=== PATIENT | female | born 1965 | race Caucasian/White ===

== ENCOUNTER 2017-12-09 13:53 | Emergency (ER) | payer BC, OTHER ==
[2017-12-09 14:16] VITALS: BMI 21.0
--- NOTE | 2017-12-09 14:29 | PDOC ---
History of Present Illness - General Chief Complaint: Nausea/Vomiting Stated Complaint: NAUSEA AND VOMITING Time Seen by Provider: 12/09/17 14:09 - History of Present Illness Initial Comments: 12/09/17 16:02 Chief complaint: Nausea and vomiting History of present illness: Patient complains of nausea and vomiting since this morning, multiple episodes of emesis consisting of bilious fluid. Intermittent crampy abdominal pain. No diarrhea. Last normal bowel movement was yesterday. Review of systems: No hematemesis, melena, or bloody stool. No fever/chills, URI symptoms, sore throat, cough, chest pain, shortness of breath, vaginal bleeding or discharge, dysuria or frequency. Urine does appear more concentrated and malodorous. Past medical history: Appendectomy, bowel resection for diverticulitis, section. Although the patient denies alcohol abuse, she has been treated in the emergency room in the past for alcohol-related illness. Social history: Denies alcohol drugs or tobacco. Denies disability Family history: Reviewed and noncontributory Physical exam: Alert and oriented well-developed well-nourished no acute distress cooperative Afebrile, vital signs normal Gen.: Patient has AOB but denies recent use of alcohol PERRLA, fundi benign, ENT clear Neck supple without bruit mass or nodes Chest clear CV regular without murmur rub or gallop Abdomen nondistended. Bowel sounds normal. Soft without mass tenderness organomegaly. No CVAT Skin clear, no rash, adequate turgor and wet mucous membranes Neurological C2 to 12 intact. Strength full and symmetric. No focal sensory or motor deficits. Gait stable and unimpaired. No asterixis or palmar erythema. Impression: In the absence of diarrhea, this appears to be alcoholic gastritis, or possibly pancreatitis Plan: CBC, chemistries, lipase, alcohol level, IV fluids, Zofran, Protonix, further evaluation and treatment based on results of laboratory studies and response to therapy. Past History - Past Medical History Allergies/Adverse Reactions: Allergies Allergy/AdvReac Type Severity Reaction Status Date / Time No Known Allergies Allergy Verified 12/09/17 14:01 Home Medications: Ambulatory Orders Alprazolam [Xanax] 1 mg PO DAILY 12/09/17 Cardiac Disorders: Yes (IL X 2,AORTIC RUPTURE,PE) COPD: No GI Disorders: Yes (ibs, INFECTED COLON) Psychiatric Problems: Yes (DEPRESSION) Seizures: Yes - Surgical History Appendectomy: Yes Cardiac Surgery: Yes (AORTIC REPAIR,DEL FILTER) GI Surgery: Yes (RESECTION) - Immunization History Immunization Up to Date: Yes - Suicide/Smoking/Psychosocial Hx Smoking Status: Yes Smoking History: Current every day smoker Have you smoked in the past 12 months: Yes Number of Cigarettes Smoked Daily: 3 Information on smoking cessation initiated: Yes 'Breaking Loose' booklet given: 07/18/13 Hx Alcohol Use: Yes (SOCIALLY) Drug/Substance Use Hx: No Substance Use Type: None *Physical Exam - Vital Signs Last Vital Signs Temp Pulse Resp BP Pulse Ox 98.3 F 94 H 20 143/100 100 12/09/17 13:55 12/09/17 13:55 12/09/17 13:55 12/09/17 13:55 12/09/17 13:55 ED Treatment Course - LABORATORY CBC & Chemistry Diagram: 12/09/17 14:47 12/09/17 15:00 Medical Decision Making - Medical Decision Making 12/09/17 16:08 Blood alcohol level is 90 to CBC and chemistries reveal a CO2 of 18, probably due to vomiting. Glucose is 73. Urinalysis had a few white cells but lots of epithelial cells and no nitrites or leukocyte esterase. 12/09/17 17:18 Patient is much improved. Nausea has resolved. No further vomiting. No abdominal pain. Taking by mouth fluids well. Follow-up with primary physician. Abstain from alcohol and tobacco as much as possible until fully recovered. *DC/Admit/Observation/Transfer Diagnosis at time of Disposition: Gastritis Qualifiers: Gastritis type: unspecified gastritis Chronicity: acute Gastritis bleeding: without bleeding Qualified Code(s): K29.00 - Acute gastritis without bleeding - Discharge Dispostion Disposition: HOME Condition at time of disposition: Improved Decision to Admit order: No - Referrals - Patient Instructions Printed Discharge Instructions: DI for Nausea -- Adult, DI for Vomiting -- Adult - Post Discharge Activity
[2017-12-09] MEDS ORDERED: ONDANSETRON 4 MG/2 ML VIAL IVPB ONE (14:30)
[2017-12-09] MEDS ORDERED: PANTOPRAZOLE SODIUM 40 MG in SODIUM CHLORIDE 100 ML IVPB ONE (14:30)
[2017-12-09] MEDS ORDERED: SODIUM CHLORIDE 1,000 ML IV STA ×2 (14:30→15:35)
[2017-12-09 14:31] LABS: URINE APPEARANCE Clear; URINE BILIRUBIN 1+ (NEGATIVE); URINE COLOR Amber; URINE GLUCOSE (UA) Negative (NEGATIVE); URINE KETONE 2+ (NEGATIVE); URINE LEUK ESTERASE Negative (NEGATIVE); URINE NITRITE Negative (NEGATIVE); URINE PROTEIN 1+ (NEGATIVE)
[2017-12-09 14:38] LABS: HCG,QUALITATIVE URINE Negative
[2017-12-09 14:50] LABS: EPI CELLS 4+ /HPF
[2017-12-09] MEDS ORDERED: PANTOPRAZOLE SODIUM 40 MG VIAL ONE (14:50)
[2017-12-09] MEDS ORDERED: ONDANSETRON 4 MG/2 ML VIAL ONE (14:50)
[2017-12-09 14:51] LABS: URINE BACTERIA 4+ /hpf (NEGATIVE)
[2017-12-09 15:28] LABS: BASO % 0.7 % (0-2.0); EOS % 0.7 % (0-4.5); HEMATOCRIT 42.7 % (32.4-45.2); HEMOGLOBIN 14.1 GM/dl (10.7-15.3); MCH 31.1 pg (25.7-33.7); MCHC 33.1 g/dl (32.0-36.0); MEAN CELL VOLUME 93.9 fl (80-96); MEAN PLT VOLUME 7.4 fl (7.5-11.1); NEUT % 79.6 % (42.8-82.8); PLATELET COUNT 224 K/MM3 (134-434); RBC 4.55 M/mm3 (3.60-5.2); WHITE BLOOD COUNT 6.9 K/mm3 (4.0-10.8)
[2017-12-09 15:29] LABS: ALBUMIN 3.9 g/dl (3.5-5.0); ALK PHOS 86 U/L (32-92); ANION GAP 8 MMOL/L (8-16); BILIRUBIN,TOTAL 0.8 mg/dl (0.2-1.0); BLOOD UREA NITROGEN 12 mg/dl (7-18); CALCIUM 8.5 mg/dl (8.4-10.2); CHLORIDE 106 mmol/L (98-107); CO2 18 mmol/L (22-28); CREATININE 0.7 mg/dl (0.6-1.3); GLUCOSE,RANDOM 73 mg/dl (74-106); POTASSIUM 3.5 mmol/L (3.5-5.1); SGOT/AST 43 U/L (10-42); SGPT/ALT 27 U/L (10-40); SODIUM 132 mmol/L (136-145); TOT PROT 6.4 g/dl (6.4-8.3)
[2017-12-09 17:15] VITALS: BP 131/93; PULSE 91; TEMP 98.7
[2017-12-09 17:24] LABS: LIPASE 85 U/L (73-393)
== END 2017-12-09 17:25 | disposition home or self-care (01) ==
LOC: FER 13:53
PROC: 3E033GC Introduction of Other Therapeutic Substance into Peripheral Vein, Percutaneous Approach (ICD-10-PCS; principal; 2017-12-09)
PROC: 3E0337Z Introduction of Electrolytic and Water Balance Substance into Peripheral Vein, Percutaneous Approach (ICD-10-PCS; 2017-12-09)
DX: K29.00 Acute gastritis without bleeding (principal); R56.9 Unspecified convulsions; K58.9 Irritable bowel syndrome, unspecified; I25.2 Old myocardial infarction
CPT/HCPCS: 36415; 80053; 80307; 81003; 81015; 83690; 84703; 85025; 99283-25; J7030

== ENCOUNTER 2020-08-16 03:50 | Emergency (ER) | payer OTHER ==
[2020-08-16 04:10] VITALS: BP 143/90; PULSE 89; TEMP 98.6; BMI 21.7
== END 2020-08-16 05:41 | disposition home or self-care (01) ==
LOC: FER 03:50
DX: G43.909 Migraine, unspecified, not intractable, without status migrainosus (principal)
CPT/HCPCS: 99283-25